=== PATIENT | male | born 1945 | race Caucasian/White ===

== ENCOUNTER 2016-05-20 11:14 | Inpatient (IN) | payer MEDICARE, OTHER ==
[2016-05-20] VITALS (11 sets, daily range): BP systolic 98–118; BP diastolic 50–73; BMI 18.8
[~2016-05-20] VITALS: Ht 188 cm; Wt 67.1 kg
[~2016-05-20 11:14] MED LIST: CASODEX50 MG PO; HYDROCODON-ACE1 EAC7 PO; LANTUS INSULIN10 ML SC; MEGACE400 MG/10 PO; MIRALAX17 GM PO; NOVOLOG100 U/M1 SC; OMEPRAZOLE20 M1 PO; PAXIL10 MG PO; PAXIL20 MG PO
[2016-05-20 12:09] LABS: HEMOGLOBIN 8.7 g/dL (13.5-17.5); MCH 30.3 pg (26.0-34.0); MCHC 33.5 g/dL (31.0-37.0); MCV 90.6 fL (80.0-100.0); MEAN PLATELET VOLUME 8.7 fL (7.4-10.4); RBC 2.87 10x6/uL (4.20-6.10); RDW 13.6 % (11.5-14.5)
[2016-05-20 12:21] LABS: PLATELET COUNT 63 10x3/uL (130-400); WBC 0.2 10x3/uL (4.8-10.8)
[2016-05-20 12:27] LABS: ALBUMIN 2.2 g/dL (3.4-5.0); ALKALINE PHOSPHATASE 71 U/L (46-116); ALT (SGPT) 14 U/L (10-68); CALC OSMOLALITY 278 mosm/kg (275-300); CALCIUM 8.1 mg/dL (8.5-10.1); CARBON DIOXIDE 28.6 mmol/L (21.0-32.0); CHLORIDE - SERUM 97 mmol/L (98-107); CREATININE - SERUM 0.8 mg/dL (0.6-1.3); POTASSIUM - SERUM 3.2 mmol/L (3.5-5.1); SODIUM 134 mmol/L (136-145); UREA NITROGEN 12 mg/dL (7-18); eGFR NON AFRICAN AMERICAN > 90 mL/min (90-120)
[2016-05-20 12:29] LABS: GLUCOSE 289 mg/dL (74-106)
[2016-05-20 12:49] LABS: ANISOCYTOSIS OCC; HYPOCHROMASIA OCC; LYMPHOCYTES 88 % (15-50); MONOCYTES 8 % (2-11); PLATELET ESTIMATE DECREASED; ROULEAUX OCC
[2016-05-20 13:40] LABS: UDS - AMPHET NEGATIVE QUAL (NEGATIVE); UDS - BARB NEGATIVE QUAL (NEGATIVE); UDS - BENZO NEGATIVE QUAL (NEGATIVE); UDS - COCAINE NEGATIVE QUAL (NEGATIVE); UDS - METH NEGATIVE QUAL (NEGATIVE); UDS - OPIATE POSITIVE QUAL (NEGATIVE); UDS - PCP NEGATIVE QUAL (NEGATIVE); UDS - THC NEGATIVE QUAL (NEGATIVE)
[2016-05-20 13:41] LABS: APPEARANCE HAZY (CLEAR); COLOR YELLOW (YELLOW); SPECIFIC GRAVITY 1.015 (1.005-1.020)
[2016-05-20 13:42] LABS: AMORPHOUS SEDIMENT <1+ /lpf (NONE SEEN); BACTERIA MANY /hpf (NONE SEEN); BILIRUBIN NEGATIVE (NEGATIVE); EPITHELIAL CELLS 0-5 /hpf (0-5); GLUCOSE 1000 mg/dL (NEGATIVE); HYALINE CAST 0-5 /lpf (NONE SEEN); KETONE LARGE mg/dL (NEGATIVE); LEUKOCYTE ESTERASE TRACE (NEGATIVE); MUCUS >1+ /lpf (NONE SEEN); NITRITE POSITIVE (NEGATIVE); PROTEIN TRACE mg/dL (NEGATIVE)
[2016-05-20 15:18] LABS: MAGNESIUM - SERUM 2.7 mg/dL (1.8-2.4)
--- NOTE | 2016-05-20 18:40 | NUR ---
RECIEVED PT TO ROOM FROM ER. ATTACHED TO ICU MONITORS. CALL LIGHT PLACED IN REACH. BED IN LOW POSITION. WILL CONTINUE TO ASSESS.
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
[2016-05-21] VITALS (24 sets, daily range): BP systolic 79–129; BP diastolic 41–77; Ht 188 cm; Wt 67.1 kg
--- NOTE | 2016-05-21 01:03 | NUR ---
RESTING WITH NO DISTRESS. VSS. PRN DILAUDID PROVIDING PAIN CONTROL. TURNED AND REPOSITIONED. ORAL CARE PROVIDED. HOB UP. RESTRAINTS FOR SAFETY. CONT CURRENT POC.
--- NOTE | 2016-05-21 03:14 | NUR ---
REASSESSMENT COMPLETED. SEE FLOWSHEET FOR ALL FINDINGS. RESTING WITH NO DISTRESS. RESP UNLABORED. LUNGS DIM IN BASES. SPO2 96% ON RA. SR ON THE MONITOR. AFEBRILE. PULSES PALP. SCDS IN USE. ABD SOFT, BSA X4. F/C PATENT WITH CONCENTRATED UOP. RESTRAINTS FOR SAFETY. CONFUSED/DISORIENTED. PERRLA. HOB UP. C/L IN REACH. CONT CURRENT POC.
--- NOTE | 2016-05-21 05:14 | NUR ---
TURNED AND REPOSITIONED FOR SKIN INTEGRITY AND COMFORT. REMAINS CONFUSED. VSS. SR ON THE MONITOR. SPO2 95% ON RA. DENIES DISCOMFORT. RESTRAINTS TO MAINTAIN LINES AND SAFETY. HOB UP. C/L IN REACH. CONT CURRENT POC.
--- NOTE | 2016-05-21 06:00 | NUR ---
SPOKE WITH DAUGHTER VIA PHONE. UPDATE GIVEN.
--- NOTE | 2016-05-21 06:26 | NUR ---
INQUIRED WITH LAB ABOUT AM LABS...[facility]LE[facility] IS YET TO DRAW THEM.
--- NOTE | 2016-05-21 07:30 | NUR ---
REC'D REPORT AND RESUMED CARE, AWAKE AND CONFUSED, O2 VIA ROOM AIR, VSS, B/L RESTRAINTS IN USE, B/L SCD'S, ASSESSMENT COMPLETE PER FLOWSHEET, CALL LIGHT IN REACH
[2016-05-21 07:31] LABS: BASOPHILS 0 % (0.0-2.0); EOSINOPHILS 0 % (0-7); HEMATOCRIT 26.9 % (42.0-54.0); HEMOGLOBIN 8.9 g/dL (13.5-17.5); LYMPHOCYTES 92.6 % (15-50); MCH 29.9 pg (26.0-34.0); MCHC 33.1 g/dL (31.0-37.0); MCV 90.3 fL (80.0-100.0); MEAN PLATELET VOLUME 9.3 fL (7.4-10.4); MONOCYTES 3.7 % (2-11); NEUTROPHILS 3.7 % (40-80); RBC 2.98 10x6/uL (4.20-6.10); RDW 14.3 % (11.5-14.5)
[2016-05-21 07:36] LABS: PLATELET COUNT 39 10x3/uL (130-400); WBC 0.3 10x3/uL (4.8-10.8)
[2016-05-21 07:43] LABS: ALKALINE PHOSPHATASE 64 U/L (46-116); ALT (SGPT) 13 U/L (10-68); BILIRUBIN - TOTAL 0.93 mg/dL (0.2-1.3); CALC OSMOLALITY 287 mosm/kg (275-300); CALCIUM 8.4 mg/dL (8.5-10.1); CARBON DIOXIDE 25.9 mmol/L (21.0-32.0); CHLORIDE - SERUM 104 mmol/L (98-107); CREATININE - SERUM 0.8 mg/dL (0.6-1.3); POTASSIUM - SERUM 3.5 mmol/L (3.5-5.1); PROTEIN - SERUM 6.6 g/dL (6.4-8.2); SODIUM 140 mmol/L (136-145); UREA NITROGEN 15 mg/dL (7-18); eGFR NON AFRICAN AMERICAN > 90 mL/min (90-120)
[2016-05-21 07:48] LABS: GLUCOSE 241 mg/dL (74-106)
--- NOTE | 2016-05-21 08:30 | NUR ---
FSBS 216, 4 UNITS HUMALOG GIVEN PER S/S, ORAL CARE WITH TOOTHETTE
--- NOTE | 2016-05-21 09:00 | NUR ---
AT BEDSIDE, STATUS UPDATED VOICES NO NEEDS AT THIS TIME
--- NOTE | 2016-05-21 10:01 | NUR ---
Is the patient Alert and Oriented? Yes 0 * How many steps to enter\exit or inside your home? 0 0 * PCP DR. RAWLS-IS USUALLY SEEN BY [facility] 0 * Pharmacy [facility] 0 * Preadmission Environment Home with Family 0 * ADLs Partial Dependent 0 * Partial ADLs (Assistance needed) Ambulation Bathing Dressing Medication Management Toileting Transfers 0 * Equipment Bedside Commode Wheelchair 0 * Other Equipment PATIENT'S STATES THEY ARE IN THE PROCESS OF GETTING A HOSPITAL BED WITH THE ASSISTANCE OF THE SEED LABORATORY ASSISTANT FROM [facility] 0 * List name and contact numbers for known caregivers / representatives who currently or will assist patient after discharge: SPOUSE: DIPIKA (H) [phone] (C) [phone] 0 * Community resources currently utilized Home Health 0 * Please name any agencies selected above. CURRENT WITH [facility]. THEY ALSO ARE SEEN BY [facility]. 0 * Additional services required to return to the preadmission environment? No 0 * Can the patient safely return to the preadmission environment? Yes 0 * Has this patient been hospitalized within the prior 30 days at any hospital? Yes PATIENT LIVES AT HOME WITH HIS , DIPIKA. SHE STATES SHE WILL BE AVAILABLE TO DRIVE HIM HOME OR HE MAY GO BY AMBULANCE DEPENDING HOW STRONG HE IS AT DISCHARGE. PATIENT'S PCP IS DR. RAWLS AND IS SEEN BY SEED LABORATORY ASSISTANT WITH [facility]. PATIENT GETS HIS MEDS FROM [facility]. PATIENT IS CURRENT WITH [facility]. HE IS ALSO SEEN BY [facility]. PATIENT'S STATES THAT THE SEED LABORATORY ASSISTANT FROM [facility] IS ASSISTING WITH OBTAINING A HOSPITAL BED. SHE STATES THEY HAVE BSC AND WHEELCHAIR. SHE STATES THAT THE PATIENT IS NOT ABLE TO WALK. THERE ARE NO STEPS TO ENTER THEIR HOME. PATIENT WAS DISCHARGE ON Apr TO HOME WITH ABOVE SERVICES.
--- NOTE | 2016-05-21 11:35 | NUR ---
INCONTINENT OF SMALL SOFT PASTY STOOL, SKINCARE AND LINEN CHANGE COMPLETED
--- NOTE | 2016-05-21 14:00 | NUR ---
B/L RESTRAINTS OFF, HONEY THICKENED GLUCERNA TO BEDSIDE, INDEPENDENT WITH SET UP AND EATING
--- NOTE | 2016-05-21 15:00 | NUR ---
RESTING WITH NO SIGNS OF DISTRESS, VSS, ASSESSMENT COMPLETE PER FLOWSHEET, VSS, CALL LIGHT IN REACH, DENIES PAIN
--- NOTE | 2016-05-21 15:30 | NUR ---
REPORT GIVEN TO IGNACIA GALAN RN
--- NOTE | 2016-05-21 19:00 | NUR ---
Assessment complete. See flowsheet. pt awake upon entrance into room soiled linens and down at bottom half curled up in bed to right side. Chlorhexidine bed bath with gown and linen changes completed. Pt BP cuff replaced to right upper arm. ICU monitoring equipment replaced to patient. VSS. Pt pulled up in bed and placed to back with HOB elevated to 30 degrees for assessment. Pt confused but somewhat cooperative at this time. Pt oriented to person only and continues to request milkshake and cola despite reminding him continuously that he is NPO. Pupils size 3 bilaterally ERRLA. Pt follows commands to move all extremities with 3/5 strength noted. Pt emaciated with sunken abdomen and bony prominences noted. Buttox reddened. Right hip reddened. Pt receiving O2 via room air with lung sounds clear/diminished to all lwarence. HR SR with S1S2 auscultated. All peripheral pulses +1 with capillary refill <3 seconds. No edema noted. Pt right wrist 18g PIV site CDI no s/s infection or infiltration with NS infusing @ 100cc/hr. Abx infusing. See MAR. BS +. Prasad secure retrieving concentrated, nate urine. Pt SCDs secured bilaterally. Pt pulled up in bed and positioned to left side. Oral moisturizer applied. Television on per request. Temp 98.5F orally. Call light and bedside table within pt reach. CPOC.
--- NOTE | 2016-05-21 21:00 | NUR ---
Pt family at bedside. Rapport established. BS check 162mg/dL. Will cover per s/s. See MAR. Pt repositioned to right side. HOB @ 30 degrees. Glycerin swabs provided per pt request. Pt remains confused and continues to request "#5 milk".
--- NOTE | 2016-05-21 23:00 | NUR ---
Reassessment complete. See flowsheet. Pt resting to right side with VSS and awakened for repositioning to back after pulling up in bed and HOB elevated to 30 degrees. No neuro changes to note. O2 RA. Respirations shallow/unlabored. SPO2 100%. Lung sounds clear/diminished to all lawrence. HR SR with S1S2 auscultated. All peripheral pulses remain +1 with capillary refill <3 seconds. PIV site CDI no s/s infection or infiltration with NS @ 100cc/hr. BS +. Prasad secure retrieving concentrated, nate urine. No s/s pain or distress. Pt provided with glycerin swabs and oral care. Bilat soft wrist restraints secure. Call light within pt reach. Pt denies further needs at this time. CPOC.
[2016-05-22] VITALS (23 sets, daily range): BP systolic 86–161; BP diastolic 50–87
--- NOTE | 2016-05-22 01:00 | NUR ---
BP cuff placed back on pt and repositioned up in bed and to left side. VSS. No other changes to note. Pt resting and warm blanket provided per request. call light within reach. Bilat soft wrist restraints secure. CPOC.
--- NOTE | 2016-05-22 03:00 | NUR ---
Reassessment complete. See flowsheet. IV out and site cleansed. Bed bath with gown and linen changes completed. New 20g PIV site to right hand x1 stick. NO IVF changes to note. Pt remains confused. Speech garbled. Pt cooperative and oriented to person only. Pt reorientation attempted and failed. No neuro changes to note from previous assessment. O2 RA. Respirations unlabored. Lung sounds remain clear/diminished to all lawrence. HR SR with S1S2 auscultated. All peripheral pulses remain +1 with capillary refill <3 seconds. BS +. Abdomen remains sunken. Prsaad secure retrieving concentrated, nate urine. SCDs removed for site cleansing and resecured. Pt pulled up in bed and positioned to back with HOB @ 30 degrees. Arms and heels bridged. Bilat soft wrist restraints resecured. Temp 97.9F temporally. Pt mouth moisturizer and oral care completed. Call light within pt reach. NO other changes to note. CPOC.
[2016-05-22 05:59] LABS: BASOPHILS 0 % (0.0-2.0); EOSINOPHILS 2.9 % (0-7); HEMATOCRIT 26.1 % (42.0-54.0); HEMOGLOBIN 8.7 g/dL (13.5-17.5); IMMATURE GRANULOCYTES 2.9 % (0-5); LYMPHOCYTES 79.4 % (15-50); MCHC 33.3 g/dL (31.0-37.0); MEAN PLATELET VOLUME 9.8 fL (7.4-10.4); MONOCYTES 14.7 % (2-11); NEUTROPHILS 0.1 % (40-80); RDW 14.4 % (11.5-14.5)
[2016-05-22 06:00] LABS: PLATELET COUNT 34 10x3/uL (130-400); WBC 0.3 10x3/uL (4.8-10.8)
[2016-05-22 06:15] LABS: INR 1.05 (0.85-1.17); PROTIME 13.5 SECONDS (11.6-15.0)
[2016-05-22 06:30] LABS: ALBUMIN 1.9 g/dL (3.4-5.0); ALKALINE PHOSPHATASE 64 U/L (46-116); CALCIUM 7.8 mg/dL (8.5-10.1); CARBON DIOXIDE 24.2 mmol/L (21.0-32.0); CHLORIDE - SERUM 104 mmol/L (98-107); CREATININE - SERUM 0.8 mg/dL (0.6-1.3); PROTEIN - SERUM 6.4 g/dL (6.4-8.2); SODIUM 139 mmol/L (136-145); eGFR NON AFRICAN AMERICAN > 90 mL/min (90-120)
[2016-05-22 06:31] LABS: ALT (SGPT) 26 U/L (10-68); CALC OSMOLALITY 283 mosm/kg (275-300); GLUCOSE 169 mg/dL (74-106); MAGNESIUM - SERUM 1.9 mg/dL (1.8-2.4); PHOSPHOROUS 1.6 mg/dL (2.5-4.9); POTASSIUM - SERUM 2.8 mmol/L (3.5-5.1); UREA NITROGEN 19 mg/dL (7-18)
--- NOTE | 2016-05-22 07:30 | NUR ---
REC'D REPORT FROM OUTGOING RN - PT SUPINE IN BED, AA&O X4, DENIES PAIN, PT WANTING TO GO TO REHAB TO GET OUT OF ICU - ATTEMPTED TO EXPLAIN PLAN OF CARE.
--- NOTE | 2016-05-22 08:00 | NUR ---
ASSESSMENT COMPLETE - PT ASKING TO EAT - EXPLAINED PT FAILED SWALLOW STUDY BUT THIS RN WILL NOTIFY MD OF PTs REQUEST.
--- NOTE | 2016-05-22 09:30 | NUR ---
DR. BARROW AT BEDSIDE FOR ASSSESMENT - ORDERS TO CHG IV FLUID TO D5 AT 90ML/HR. PT CONTINUES TO ASK FOR FOOD. AWARE OF PT'S REQEUST. CONTINUE POC
--- NOTE | 2016-05-22 12:00 | NUR ---
FAMILY AT BEDSIDE - PT RESTING AA&O TO FAMILY VOICED NO C/O. CONT. POC.
--- NOTE | 2016-05-22 12:10 | NUR ---
DR. BERMAN CALLED - CHG TO D5NS WITH 10MEQ K+ AND CONTINUE ELECTROLYTE PROTOCOL. TOV.
--- NOTE | 2016-05-22 13:30 | NUR ---
PT CONTINUES TO ASK FOR FOOD - THIS RN CONT TO REORIENT PT TO NPO STATUS. PT VERBALIZE UNDERSTANDING.
--- NOTE | 2016-05-22 15:00 | NUR ---
FAMILY AT BEDSIDE - DECORATED PT'S ROOM - TODAY IS PT'S BIRTHDAY - PT RESTING. CONT TO C/O NOT EATING. FAMILY IS AGREEABLE TO PLAN OF CARE.
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
--- NOTE | 2016-05-22 19:20 | NUR ---
Assessment complete. See flowsheet. Pt awake and conversive. Pt confused/disoriented to place, time and situation but oriented to person. Pt does, however follow commands and move extremities to command while following light conversation. Pupils size 3 bilaterally ERRLA. Pt moving all extremities with 3/5 strength. NO edema noted. O2 RA. Respirations shallow, unlabored. Lung sounds clear/diminished to all lawrence. HR SR with S1S2 auscultated. All peripheral pulses +1 with capillary refill <3 seconds. Right hand 20g PIV site CDI no s/s infection or infiltration with D5NS + 10mEq KCL infusing @ 90cc/hr. BS + to all quadrants. Prasad catheter secure retrieving concentrated, nate urine. Pt helped up in bed and repositioned to left side. Buttox reddened. HOB elevated to 30 degrees. Mouth moisturizer applied. Temp 98.0F temporally. Clinical Data Abstractor Manfred notified of pt need NaPO4 15MMOL IV for electrolyte coverage not given on day shift per order. Bilat soft wrist restraints loosely secure. Pt denies pain or further needs at this time. Call light within reach. CPOC.
--- NOTE | 2016-05-22 21:20 | NUR ---
Pt repositioned to right side with minimal assistance. VSS. HOB @ 30 degrees. Pt confused and asking if he is in a movie or is this live. Pt reorientation attempted but remains confused. Bilat soft wrist restraints secure. BS 194mg/dL and covered per s/s. See MAR. K+ 3.3 and electrolyte protocol coverage initiated. SEE MAR. Pt denies further needs at this time. Call light within pt reach. CPOC.
--- NOTE | 2016-05-22 23:20 | NUR ---
Reassessment complete. See flowsheet. Pt remains confused with no neuro changes to note. O2 RA. Respirations shallow/unlabored. Lung sounds remain clear/diminished to all lawrence. HR SR with S1S2 auscultated. All peripheral pulses +1 with capillary refill <3 seconds. PIV site to right hand CDI no s/s infection or infiltration with Sodium Phosphate 15mmol infusing over 4hr with KCL rider and D5NS +10mEq KCL @ 90cc/hr. BS +. Prasad secure retrieving concentrated, nate urine. Pt repositioned to back with HOB @ 20 degrees. Mouth moisturizer applied to lips and tongue. Pt confused but cooperative. SCDs secure. Bilat soft wrist restraints secure. Linens clean/dry. No s/s pain or distress. Call light within pt reach. CPOC.
--- NOTE | 2016-05-22 23:50 | NUR ---
[facility] UNIT [id number] DOUBLE CHECKED WITH KYUNG OTTO. INFUSION INITIATED. VSS AND RECORDED TO TRX SLIP. PT EXPLAINED TO S/S TRX REACTION AND VERBALIZES UNDERSTANDING.
[2016-05-23] VITALS (24 sets, daily range): BP systolic 79–143; BP diastolic 56–115
--- NOTE | 2016-05-23 01:20 | NUR ---
4th KCL 10mEq IV rider started. Pt confused at this time and states "are you here to kill me?" Pt very apprehensive and using bedside telephone as a weapon. Phone removed from room. Pt calmed. No other changes to note. VSS.
--- NOTE | 2016-05-23 03:20 | NUR ---
Reassessment complete. See flowsheet. Pt remains awake and confused. No neuro changes to note. O2 RA. Lung sounds remain clear/diminished to all lawrence. HR SR. PIV site CDI with NO IVF changes to note. BS +. Prasad secure. Pt repositioned to back. HOB @ 30 degrees. Bilat soft wrist restraints secure. CPOC.
--- NOTE | 2016-05-23 05:20 | NUR ---
Pt repositioned in bed for comfort. HOB @ 30 degrees. VSS. NO s/s pain or distress. Confusion persists. Bilat soft wrist restraints secure. CPOC.
[2016-05-23 05:38] LABS: BASOPHILS 0 % (0.0-2.0); EOSINOPHILS 1.6 % (0-7); HEMATOCRIT 27.1 % (42.0-54.0); IMMATURE GRANULOCYTES 9.7 % (0-5); LYMPHOCYTES 45.2 % (15-50); MCHC 33.2 g/dL (31.0-37.0); MCV 90.3 fL (80.0-100.0); MONOCYTES 17.7 % (2-11); NEUTROPHILS 25.8 % (40-80); RDW 14.7 % (11.5-14.5)
[2016-05-23 05:41] LABS: PLATELET COUNT 37 10x3/uL (130-400); WBC 0.6 10x3/uL (4.8-10.8)
[2016-05-23 05:49] LABS: ALKALINE PHOSPHATASE 64 U/L (46-116); ALT (SGPT) 29 U/L (10-68); BILIRUBIN - TOTAL 0.55 mg/dL (0.2-1.3); CALC OSMOLALITY 288 mosm/kg (275-300); CALCIUM 7.9 mg/dL (8.5-10.1); CARBON DIOXIDE 23.4 mmol/L (21.0-32.0); CHLORIDE - SERUM 108 mmol/L (98-107); CREATININE - SERUM 0.8 mg/dL (0.6-1.3); GLUCOSE 181 mg/dL (74-106); MAGNESIUM - SERUM 1.7 mg/dL (1.8-2.4); POTASSIUM - SERUM 3.3 mmol/L (3.5-5.1); PROTEIN - SERUM 6.5 g/dL (6.4-8.2); SODIUM 142 mmol/L (136-145); UREA NITROGEN 16 mg/dL (7-18); eGFR NON AFRICAN AMERICAN > 90 mL/min (90-120)
[2016-05-23 05:50] LABS: PHOSPHOROUS 1.2 mg/dL (2.5-4.9)
--- NOTE | 2016-05-23 14:36 | HP ---
PATIENT: MARTINA BUCKLEY MEDICAL RECORD: [id number] ACCOUNT: [id number] LOCATION:[facility] D.2310 : 45 ADMISSION DATE: 05/20/16 HISTORY AND PHYSICAL EXAMINATION HISTORY OF PRESENT ILLNESS: Mr. Buckley is a 70-year-old male patient of Dr. Tomass, Carmen Bell, and [facility], who presents with severe weakness, fatigue, fever and inability to swallow. He is confused and a poor historian. He has metastatic small cell carcinoma. Dr. Ramos is his oncologist. He has received initially contemplating hospice, but then decided to try some chemo, has had 2 doses, the last was about a week ago. His white count today is 0.2. It looks like he has got a UTI. He is confused. His reports some recent difficulties with swallowing with poor oral intake. He is admitted at this time for further evaluation and therapy. PAST MEDICAL HISTORY: Significant for neuropathy, retinitis pigmentosa, diabetes, hepatitis and metastatic small cell carcinoma. PAST SURGICAL HISTORY: Include a knee surgery and prostate surgery. ALLERGIES: NIACIN. HOME MEDICATIONS: Include paroxetine 10 mg a day, insulin, Casodex 50 mg a day, Sheffield 5 p.r.n., Megace, MiraLax and omeprazole. FAMILY HISTORY: Noncontributory. SOCIAL HISTORY: The patient does not drink. He is . REVIEW OF SYSTEMS: Significant for recent weakness, confusion, weight loss and difficulty swallowing. PHYSICAL EXAMINATION: GENERAL: He is confused, cachectic in appearance, unable to give much history. HEENT: Sclerae nonicteric. HEART: Regular. LUNGS: Diminished without wheezes, rales or rhonchi. ABDOMEN: Scaphoid. EXTREMITIES: Lower extremities revealed no edema. NEUROLOGIC: He moves all extremities. IMPRESSION: 1. Metastatic small cell carcinoma. 2. Severe leukopenia. 3. Urinary tract infection. 4. Diabetes. 5. Probable chronic obstructive pulmonary disease. PLAN: Admit to ICU. He is a med code only, but may require pressors. I have discussed with Dr. Ramos. We will start broad spectrum antibiotics. Cultures have been obtained. Prognosis is very guarded. TRANSINT:[id number] Voice Confirmation ID: [id number] DOCUMENT ID: [id number] HISTORY AND PHYSICAL [id number] MARCIOGALILEA LARA DO at 1436 CC: [id number] DICTATION DATE: 05/20/161827 ASSET PROTECTION LEAD: 05/20/161939 ADM IN [place] [id number] [place] [id number]
--- NOTE | 2016-05-23 19:30 | NUR ---
ASSESSMENT COMPLETE. S1S2. RR CLEAR; UNLABORED. PT CONFUSED; ORIENTED TO SELF. RADIAL/PEDAL PULSES PALPATED +1. PIV IN RIGHT HAND; PATENT WITH NO SIGNS OF INFILTRATION. ON ROOM AIR; REFUSING TO WEAR NASAL CANNULA. POWELL IN PLACE; SECURED TO LEFT LEG. SEE FLOW SHEET FOR DETAILS.
--- NOTE | 2016-05-23 21:45 | NUR ---
PT REMOVED GOWN AND ECG LEADS; LEADS AND GOWN ENDED UP IN PT FLOOR. NEW GOWN AND LEADS PLACED. EDUCATED PT ON IMPORTANCE OF LEAVING THEM ON.
--- NOTE | 2016-05-23 23:00 | NUR ---
REASSESSMENT COMPLETE. NO CHANGES FROM PREVIOUS ASSESSMENT.
[2016-05-24] VITALS (24 sets, daily range): BP systolic 73–155; BP diastolic 32–98
--- NOTE | 2016-05-24 01:15 | NUR ---
PT HAD VERY SMALL BOWEL MOVEMENT; INCONTINENT. PT CLEANED; NEW LINENS SUPPLIED.
--- NOTE | 2016-05-24 03:00 | NUR ---
REASSESSMENT COMPELTE. SEE FLOW SHEET FOR DETAILS.
[2016-05-24 04:13] LABS: BASOPHILS 0.6 % (0.0-2.0); EOSINOPHILS 0.6 % (0-7); HEMATOCRIT 26.3 % (42.0-54.0); HEMOGLOBIN 8.8 g/dL (13.5-17.5); IMMATURE GRANULOCYTES 1.1 % (0-5); LYMPHOCYTES 25.7 % (15-50); MCH 29.6 pg (26.0-34.0); MCHC 33.5 g/dL (31.0-37.0); MCV 88.6 fL (80.0-100.0); MONOCYTES 17.7 % (2-11); NEUTROPHILS 54.3 % (40-80); RBC 2.97 10x6/uL (4.20-6.10); RDW 14.7 % (11.5-14.5)
[2016-05-24 04:16] LABS: PLATELET COUNT 61 10x3/uL (130-400)
[2016-05-24 04:17] LABS: WBC 1.8 10x3/uL (4.8-10.8)
[2016-05-24 04:25] LABS: ALKALINE PHOSPHATASE 68 U/L (46-116); ALT (SGPT) 33 U/L (10-68); BILIRUBIN - TOTAL 0.48 mg/dL (0.2-1.3); CALC OSMOLALITY 287 mosm/kg (275-300); CALCIUM 7.5 mg/dL (8.5-10.1); CARBON DIOXIDE 21.2 mmol/L (21.0-32.0); CHLORIDE - SERUM 111 mmol/L (98-107); CREATININE - SERUM 0.7 mg/dL (0.6-1.3); GLUCOSE 136 mg/dL (74-106); POTASSIUM - SERUM 3.5 mmol/L (3.5-5.1); PROTEIN - SERUM 5.8 g/dL (6.4-8.2); SODIUM 144 mmol/L (136-145); eGFR NON AFRICAN AMERICAN > 90 mL/min (90-120)
[2016-05-24 04:26] LABS: PHOSPHOROUS 1.2 mg/dL (2.5-4.9); UREA NITROGEN 10 mg/dL (7-18)
--- NOTE | 2016-05-24 05:30 | NUR ---
PT REMOVED PIV FROM RIGHT HAND. PT APOLOGIZED FOR DOING SO STATING, "I GET CONFUSED SOMETIME AND DON'T KNOW WHAT I'M DOING." PT CLEANED, COMPLETE LINEN CHANGE.
--- NOTE | 2016-05-24 06:15 | NUR ---
IV ACCESSED THROUGH PREVIOUS LEFT CHEST IMPLANTED PORT.
--- NOTE | 2016-05-24 06:45 | NUR ---
PT PULLED OUT IV THAT WAS PLACED IN PORT. PT PLACED IN RESTRAINTS. NEW IV RESITED INTO PORT.
--- NOTE | 2016-05-24 09:27 | NUR ---
NUTRITION MONITORING & EVAL PT REMAINS IN ISOLATION. ONLY A FEW BITES BREAKFAST. PUREED, HONEY THICK, DIABETIC DIET. RD FOLLOWING
--- NOTE | 2016-05-24 19:15 | NUR ---
REPORT RECIEVED, SHIFT ASSESSMENT COMPLETE, PT IS CONFUSED LYING IN BED, PULLING AT LINES, B/L WRIST RESTRAINTS IN USE, ON RA WITH 97% O2 SAT. LUNGS DIMINISHED IN B/L LOWER LOBES, S1S2, CM-NSR, PATENT LEFT CHEST PORT...SEE FLOW SHEET..ABDOMEN IS SOFT AND ROUND WITH HYPO BS, PATENT F/C WITH DARK UOP, EDEMA NOTED IN ALL EXTREMETIES, ALL PPP, VSS, WILL CON'T TO MONITOR
--- NOTE | 2016-05-24 20:00 | NUR ---
PT PULLED OUT INFUSAPORT, NOTIFIED
--- NOTE | 2016-05-24 21:00 | NUR ---
FAMILY AT BEDSIDE, UPDATE GIVEN, HOSPICE BROCHURE HANDED TO DAUGHTER SAMM,
--- NOTE | 2016-05-24 23:00 | NUR ---
REASSESSMENT COMPLETE, NO CHANGES NOTED, PT RESTING COMFORTABLY AT THIS TIME, VSS, WILL CON'T TO MONITOR
--- NOTE | 2016-05-25 01:00 | NUR ---
NO NEEDS NOTED AT THIS TIME, VSS, WILL CON'T TO MONITOR
--- NOTE | 2016-05-25 03:00 | NUR ---
REASSESSMENT COMPLETE, NO CHANGES NOTED, PT RESTING AT THIS TIME, NO NEEDS NOTED, WILL CON'T TO MONITOR
[2016-05-25 05:09] LABS: BASOPHILS 0.3 % (0.0-2.0); EOSINOPHILS 0.1 % (0-7); HEMATOCRIT 30.5 % (42.0-54.0); HEMOGLOBIN 9.2 g/dL (13.5-17.5); IMMATURE GRANULOCYTES 10.8 % (0-5); LYMPHOCYTES 15.5 % (15-50); MCH 30.5 pg (26.0-34.0); MCHC 30.2 g/dL (31.0-37.0); MEAN PLATELET VOLUME 12.6 fL (7.4-10.4); MONOCYTES 12.7 % (2-11); NEUTROPHILS 60.6 % (40-80); RBC 3.02 10x6/uL (4.20-6.10); RDW 15.9 % (11.5-14.5)
[2016-05-25 05:14] LABS: PLATELET COUNT 118 10x3/uL (130-400); WBC 6.8 10x3/uL (4.8-10.8)
[2016-05-25 05:39] LABS: ALBUMIN 2.1 g/dL (3.4-5.0); ALKALINE PHOSPHATASE 78 U/L (46-116); ALT (SGPT) 36 U/L (10-68); BILIRUBIN - TOTAL 0.59 mg/dL (0.2-1.3); CALCIUM 7.8 mg/dL (8.5-10.1); CARBON DIOXIDE 23.7 mmol/L (21.0-32.0); CHLORIDE - SERUM 112 mmol/L (98-107); MAGNESIUM - SERUM 1.9 mg/dL (1.8-2.4); POTASSIUM - SERUM 3.1 mmol/L (3.5-5.1); PROTEIN - SERUM 6.4 g/dL (6.4-8.2); SODIUM 146 mmol/L (136-145); UREA NITROGEN 10 mg/dL (7-18); eGFR NON AFRICAN AMERICAN 78 mL/min (90-120)
[2016-05-25 05:40] LABS: CALC OSMOLALITY 288 mosm/kg (275-300); GLUCOSE 73 mg/dL (74-106); PHOSPHOROUS 1.2 mg/dL (2.5-4.9)
[2016-05-25 07:00] VITALS: BP 110/76
--- NOTE | 2016-05-25 07:47 | NUR ---
0730- FAMILY AT . DECISION TO TAKE PT HOME WITH HOSPICE HAS BEEN MADE BY FAMILY AND PT STATES REPEATLY THAT HE WANTS TO GO HOME. PT HAS PULLED IV OUT. BATHED AND CLEAN LINENS COMPLETE AND BREAKFAST TRAY PROVIDED. FAMILY ARE ASSISTING HIM WITH HIS TRAT.
--- NOTE | 2016-05-25 08:09 | NUR ---
0807- DR BAKER PAGED. AWAITING CALL BACK.
--- NOTE | 2016-05-25 10:38 | NUR ---
1038- HERE, DR BAKER SPOKE TO HER ON PHONE. DOES WANT TO GO WITH HOSPICE AND TAKE PT HOME WITH [facility]. REPORTED TO [facility].
--- NOTE | 2016-05-25 10:38 | NUR ---
I SPOKE WITH PATIENT'S . SHE HAS ASKED THE [facility] WITH HOSPICE. THEY HAVE CHOSEN [facility]. I HAVE CONTACTED REGINA AT [phone]. I WILL FAX THE INFORMATION TO THEM. SHE STATES IT WILL BE ABOUT 2 HOURS DUE TO THEIR VOLUME OF CONSULTS THIS AM. CM TO FOLLOW.
[2016-05-25 14:00] VITALS: BP 98/76
--- NOTE | 2016-05-25 16:04 | NUR ---
HOSPICE EVAL COMPLETE AND PT HAS BEEN EXCEPTED. GOING HOME TO LET DME PEOPLE IN W/HOSPITAL BED.
--- NOTE | 2016-05-25 18:06 | NUR ---
1800- PT DC HOME WITH HOSPICE. AMBULANCE TOOK TO HIS HOME. NOTIFIED OF TIME OF DEPARTURE. HOSPICE NOTIFIED OF TIME OF DEPARTURE.
== END 2016-05-25 18:00 | disposition home health service (06) | DRG 809 ==
LOC: D.ER 11:14 → D.SDCHOLD 13:38 → D.ICU 13:38 → D.M2 13:38 → D.ICU 15:15
PROVIDERS: Emergency Medicine; Internal Medicine Medical Oncology; ADMIT Family Medicine
DX: D70.1 Agranulocytosis secondary to cancer chemotherapy (principal); C34.90 Malignant neoplasm of unspecified part of unspecified bronchus or lung; B37.0 Candidal stomatitis; F05 Delirium due to known physiological condition; T83.511A Infection and inflammatory reaction due to indwelling urethral catheter, initial encounter; T45.1X5A Adverse effect of antineoplastic and immunosuppressive drugs, initial encounter; D64.81 Anemia due to antineoplastic chemotherapy; R13.10 Dysphagia, unspecified; E11.40 Type 2 diabetes mellitus with diabetic neuropathy, unspecified; K21.9 Gastro-esophageal reflux disease without esophagitis; K58.9 Irritable bowel syndrome, unspecified; N40.0 Benign prostatic hyperplasia without lower urinary tract symptoms; F41.8 Other specified anxiety disorders; E78.2 Mixed hyperlipidemia; E55.9 Vitamin D deficiency, unspecified; E87.6 Hypokalemia; H91.90 Unspecified hearing loss, unspecified ear; K75.9 Inflammatory liver disease, unspecified; R50.81 Fever presenting with conditions classified elsewhere